=== PATIENT | male | born 1975 | race Caucasian/White ===

== ENCOUNTER 2017-06-16 21:10 | Emergency (ER) | payer SELFPAY ==
[2017-06-16] MEDS ORDERED: Diphtheria,Pertussis(Acell),Tetanus Vaccine 0.5 ML SDV IM ONE (21:25)
[2017-06-16] MEDS ORDERED: Lidocaine 1% with EPINEPHrine 1:100,000 20 ML MDV INJECT ONE (21:25)
--- NOTE | 2017-06-16 21:42 | EDM.PDOC ---
ED HPI GENERAL MEDICAL PROBLEM - General Chief Complaint: Head Injury Stated Complaint: HEAD INJURY Time Seen by Provider: 06/16/17 21:23 Source of Information: Reports: Patient History Limitations: Reports: No Limitations - History of Present Illness INITIAL COMMENTS - FREE TEXT/NARRATIVE: The patient was in judo class and he hit head with another student. He has a 2cm laceration to his right forehead. He had no LOC. He has no headache. His tetanus is not up to date. Onset: Sudden Duration: Minutes: Location: Reports: Face (Right forehead) Quality: Reports: Sharp Severity: Mild Improves with: Reports: None Worsens with: Reports: None Context: Reports: Activity (Judo) Associated Symptoms: Reports: No Other Symptoms Head Pain Score (Numeric/FACES): 2 - Related Data Allergies Allergy/AdvReac Type Severity Reaction Status Date / Time No Known Allergies Allergy Verified 06/16/17 21:18 Home Meds: Home Meds . [No Known Home Meds] 06/16/17 [History] Past Medical History - Past Health History Medical/Surgical History: Denies Medical/Surgical History Social & Family History - Tobacco Use Smoking Status *Q: Never Smoker ED ROS GENERAL - Review of Systems Review Of Systems: See Below Constitutional: Reports: No Symptoms HEENT: Reports: Other (2cm laceration to his right forehead) Respiratory: Reports: No Symptoms Cardiovascular: Reports: No Symptoms Endocrine: Reports: No Symptoms GI/Abdominal: Reports: No Symptoms : Reports: No Symptoms Musculoskeletal: Reports: No Symptoms ED EXAM, HEAD INJURY - Physical Exam Exam: See Below Exam Limited By: No Limitations General Appearance: Alert, No Apparent Distress Head: Other (2cm angled laceration to the right forehead) Eyes: Bilateral Eye: EOMI Ears: Normal External Exam Nose: Normal Inspection Neck: Non-Tender, Normal Alignment, Normal Inspection Respiratory: No Respiratory Distress, Lungs Clear, Normal Breath Sounds Cardiovascular: Regular Rate, Rhythm, No Edema, No Murmur GI/Abdominal Exam: Soft, Non-Tender, No Organomegaly, No Mass Extremities: Normal Inspection ED LACERATION/WOUND & IRENE PROC - Laceration/Wound Repair Right Forehead Lac/wound length in cm: 2 Appearance: Subcutaneous, Irregular Anesthetic Type: Local Local Anesthesia - Lidocaine (Xylocaine): 1% with EPI Skin Prep: Saline Exploration/Debridement/Repair: Wound Explored, In a Bloodless Field, Explored to Base Closed with: Sutures Suture Size: other (5-0) # of Sutures: 5 Suture Type: Nylon, Interrupted, Simple Tetanus Status Addressed: Yes Complications: No Course - Vital Signs Last Recorded V/S: Last Vital Signs Temp 97.8 F 06/16/17 21:18 Pulse 67 06/16/17 21:18 Resp BP 134/90 06/16/17 21:18 Pulse Ox 99 06/16/17 21:18 - Orders/Labs/Meds Orders: Active Orders 24 hr Category Date Time Status Vaccines to be Administered [RC] PER UNIT ROUTINE Care 06/16/17 21:25 Active Meds: Medications Discontinued Medications Generic Name Dose Route Start Last Admin Trade Name Jorje PRN Reason Stop Dose Admin Diphtheria/Tetanus/Acell Pertussis 0.5 ml 06/16/17 21:25 06/16/17 21:43 Adacel IM 06/16/17 21:26 0.5 ml .ONCE ONE Administration Lidocaine/Epinephrine 20 ml 06/16/17 21:25 06/16/17 21:47 Xylocaine 1% With Epinephrine 1:100,000 INJECT 06/16/17 21:26 20 ml ONETIME ONE Administration - Re-Assessments/Exams Free Text/Narrative Re-Assessment/Exam: 06/16/17 22:07 I updated his tetanus. I sutured his forehead. Departure - Departure Time of Disposition: 22:10 Disposition: Home, Self-Care 01 Condition: Good Clinical Impression: Forehead laceration Qualifiers: Encounter type: initial encounter Qualified Code(s): S01.81XA - Laceration without foreign body of other part of head, initial encounter - Discharge Information Referrals: PCP,None [Primary Care Provider] - Forms: ED Department Discharge Additional Instructions: Wash the wound with warm soapy water 2 times per day and apply antibiotic ointment after. Have the sutures out in 1 week. Look for any signs of infection such as redness, swelling, pain or drainage. If you see any of these signs, follow up you may need oral antibiotics. - My Orders Last 24 Hours: My Active Orders 06/16/17 21:25 Vaccines to be Administered [RC] PER UNIT ROUTINE - Assessment/Plan Last 24 Hours: My Active Orders 06/16/17 21:25 Vaccines to be Administered [RC] PER UNIT ROUTINE
== END 2017-06-16 22:13 | disposition home or self-care (01) ==
LOC: JD.ED 21:10
DX: S01.81XA Laceration without foreign body of other part of head, initial encounter (principal); W51.XXXA Accidental striking against or bumped into by another person, initial encounter; Z23 Encounter for immunization
CPT/HCPCS: 12001; 12011; 90471; 90715; 99282-25; 99283-25